=== PATIENT | female | born 1950 | race Caucasian/White ===

== ENCOUNTER 2016-06-28 07:42 | Emergency (ER) | payer OTHER, MEDICARE ==
--- NOTE | 2016-06-28 08:01 | UCPHY ---
H & P Time Seen by Provider: 06/28/16 07:58 Patient Type: New HPI/ROS: CHIEF COMPLAINT: Cough and congestion HISTORY OF PRESENT ILLNESS: Patient started having symptoms 9 days ago with sore throat and mild cough. She was prescribed azithromycin by a clinic at [facility] in [facility] last Tuesday. Over the weekend her cough became worse. Severe and keeping her awake. Yellow to green sputum production. No chest pain or leg swelling or hemoptysis. She had some sinus pressure last night. She has sore throat yesterday but today it is better. REVIEW OF SYSTEMS: Eye: no change in vision ENT: HPI Cardiac: no chest pain or syncope Pulmonary: HPI Abdomen: no vomiting, diarrhea, abdominal pain Musculoskeletal: no back pain or leg pain Skin: no rash Neuro: no headache Constitutional: no fever : no urinary symptoms A comprehensive 10 point review of systems is otherwise negative aside from elements mentioned in the history of present illness. PAST MEDICAL HISTORY: Family history negative DVT Social history: Nonsmoker General Appearance: Alert and conversant, cooperative. Eyes: No scleral icterus. ENT, Mouth: Normal mucous membranes. Normal pharynx without erythema or exudate , no trismus. Respiratory: Bilateral wheezing but no focal lung sounds or rales. Cardiovascular: Regular rate and rhythm. Gastrointestinal: Abdomen is soft and non tender. Neurological: Alert and oriented x3. Normally conversant. Face symmetric, normal movement and sensation in all extremities. Skin: Warm and dry, no rashes. Musculoskeletal: No peripheral edema and no joint swelling. No calf tenderness. Psychiatric: Not agitated. Emergency Department course/MDM: Plan for chest x-ray and DuoNeb. 850: Results discussed, less wheezy at this time on exam, albuterol neb and prednisone discussed and consented. Smoking Status: Never smoked Constitutional: Initial Vital Signs Temperature (C) 36.9 C 06/28/16 07:57 Heart Rate 75 06/28/16 07:57 Respiratory Rate 18 06/28/16 07:57 Blood Pressure 142/101 H 06/28/16 07:57 O2 Sat (%) 92 06/28/16 07:57 O2 Delivery Mode Room Air Allergies/Adverse Reactions: Sulfa (Sulfonamide Antibiotics) Allergy (Intermediate, Verified 06/28/16 07:57) Rash codeine Adverse Reaction (Severe, Verified 06/28/16 07:57) Vomiting PENICILLIN Allergy (Intermediate, Uncoded 06/28/16 07:57) Rash Home Medications: Medication Instructions Recorded VITAMIN 02/26/10 Albuterol Hfa Anes Only [Proair 2 puffs IH QID PRN #1 mdi 06/28/16 Hfa Icu (*)] predniSONE [prednisone 20mg (RX)] 40 mg PO DAILY 4 Days 06/28/16 Medical Decision Making - Diagnostics Imaging Results: Chest x-ray negative for pneumonia or other acute abnormality. Bronchitis pattern Imaging: I viewed and interpreted images myself Departure - Departure Disposition: Home, Routine, Self-Care Clinical Impression: Bronchitis Condition: Good Instructions: Acute Bronchitis (ED) Referrals: Emmanuel Doshi DO [Primary Care Provider] - As per Instructions Prescriptions: Albuterol Hfa Anes Only [Proair Hfa Icu (*)] 2 puffs IH QID PRN #1 mdi PRN Reason: cough predniSONE [prednisone 20mg (RX)] 40 mg PO DAILY 4 Days - PQRS PQRS Measurement: 134: Depression screening and followup, PRIME MD-PHQ2 (12 years and older) Over the last 2 weeks, how often have you been bothered by any of the following problems? 1. Feeling down, depressed, or hopeless? 2. Little interest or pleasure in doing things? Patient answered no to both 1 and 2 130: Documentation of medications. Reviewed all patient medications, doses, route and frequency. 226: Do you smoke? No. 47: 65 and older: Advanced care planning. Patient designates surrogate decision maker as spouse . 51: 18 years old and older with diagnosis of COPD, spirometry performance. Patient has no history of COPD 52: 18 years old and older with COPD and symptoms of COPD or FEV1<60% predicted prescribed a B Agonist. Spirometry not performed; equipment not available.
[2016-06-28] MEDS ORDERED: IPRATROPIUM/ALBUTEROL 3 ML DEYVIAL IH ONE (08:08)
[2016-06-28] MEDS ORDERED: IPRATROPIUM/ALBUTEROL 3 ML DEYVIAL ONE (08:10)
[2016-06-28 08:15] VITALS: RESP 18; TEMP 98.4
[2016-06-28] MEDS ORDERED: predniSONE 20 MG TAB PO ONE (08:52)
[2016-06-28] MEDS ORDERED: ALBUTEROL 3 ML DEYVIAL IH ONE (08:52)
[2016-06-28 12:44] VITALS: BP 117/73; PULSE 89; O2SAT 94
== END 2016-06-28 09:35 | disposition home or self-care (01) ==
LOC: CED 07:42
DX: J20.9 Acute bronchitis, unspecified (principal)
CPT/HCPCS: 71020; G0463; 99204-PO

== ENCOUNTER 2016-07-05 08:52 | Emergency (ER) | payer OTHER, MEDICARE ==
[2016-07-05 09:29] VITALS: RESP 16; TEMP 98.2
--- NOTE | 2016-07-05 09:58 | UCPHY ---
H & P Time Seen by Provider: 07/05/16 09:43 Patient Type: Established HPI/ROS: This patient complains of cough since June 19. She was treated with a Z-Miguel and ear Sadi[facility] early course of the illness without resolution and was seen here at [facility] on June 28 with a normal chest x-ray at that time, diagnosed with bronchitis and placed on albuterol inhaler with prednisone. She reports compliance with the treatment plan but has not had resolution of cough. In fact, she feels that she has more chest congestion now and reports that her feeling of dyspnea is present with some exertion if she lies flat is well. She also reports onset of bloody sputum over the past 3 days. She reports some chest pain with cough yesterday that sounded nonpleuritic more achy in nature is improved today. ROS: No high fevers or chills. No significant fatigue. HEENT: No nasal congestion. No sore throat. No dysphonia. Pulmonary: As per HPI cardiovascular: No heart palpitations or lightheadedness. No lower extremity swelling. No chest pain other than was mentioned in HPI. GI: No nausea vomiting diaphoresis. Integumentary: No skin rash. 10 point ROS is otherwise negative. Past Medical/Surgical History: Recent visit for bronchitis as noted in HPI. Otherwise healthy Family history is negative for premature coronary disease Smoking Status: Never smoked Physical Exam: General Appearance: Alert, no distress. Eyes: Pupils equal and round no pallor or injection. ENT, Mouth: Mucous membranes moist. Respiratory: Rhonchi-mild right base more than left. No rales. Minimal expiratory wheeze Cardiovascular: Regular rate and rhythm. No murmur gallop rub. No JVD. No peripheral edema. Gastrointestinal: Abdomen is soft and nontender, no masses, bowel sounds normal. Neurological: Alert with no focal deficits. Skin: Warm and dry, no rashes. Musculoskeletal: Neck is supple nontender. Extremities are symmetrical, full range of motion. Psychiatric: Mood and affect normal DIFFERENTIAL DIAGNOSIS: After history and physical exam differential diagnosis was considered for persistent bronchitis, pneumonia, doubt CHF, PE Constitutional: Initial Vital Signs Temperature (C) 36.8 C 07/05/16 09:12 Heart Rate 70 07/05/16 09:12 Respiratory Rate 16 07/05/16 09:12 Blood Pressure 130/86 H 07/05/16 09:12 O2 Sat (%) 95 07/05/16 09:12 O2 Delivery Mode Room Air Allergies/Adverse Reactions: Sulfa (Sulfonamide Antibiotics) Allergy (Intermediate, Verified 07/05/16 09:22) Rash codeine Adverse Reaction (Severe, Verified 07/05/16 09:22) Vomiting PENICILLIN Allergy (Intermediate, Uncoded 07/05/16 09:22) Rash Home Medications: Medication Instructions Recorded VITAMIN 02/26/10 Doxycycline Hyclate [Vibramycin 100 mg PO BID #14 cap 07/05/16 100 MG (*)] Fluticasone Hfa 220 Mcg [Flovent 2 puffs IH DAILY #1 mdi 07/05/16 220 MCG Hfa MDI (*)] MDM/Departure - MDM Diagnostics: CBC reveals mild leukocytosis with increased lymphocytes. She also has increased monocytes. D-dimer is negative Troponins normal Basic metabolic panel normal BNP is normal Peak flow is low at 250 the predicted of 400. Her peak flow did not change after a DuoNeb. Discussion: Patient here with ongoing bronchitis despite appropriate treatment. Given lack of fever lack of clinical evidence to suggest pneumonia- no rales, it recent normal chest x-ray, no fevers and ongoing symptoms proceed with further workup to rule out coronary syndrome, PE, CHF. Her EKG appears benign here with exception of very subtle EKG abnormality which may be her baseline inferior leads with borderline T-wave abnormalities. And not think she is having active coronary event. Counseled patient regarding findings. Given her hemoptysis will cover her with an antibiotic with plan to follow up with her primary care physician, shook splicer for any ongoing symptoms- protection officer. ED Course/Re-evaluation: DuoNeb without improvement peak flow. - Depart Disposition: Home, Routine, Self-Care Clinical Impression: Bronchitis, Hemoptysis Dyspnea Qualifiers: Dyspnea type: unspecified Qualified Code(s): R06.00 - Dyspnea, unspecified Condition: Good Instructions: Acute Bronchitis (ED) Additional Instructions: Diagnosis: 1. Bronchitis 2. Dyspnea 3. Hemoptysis Plan: Humidifier Continue albuterol inhaler for cough, wheeze or shortness of breath Add Flovent steroid inhaler for 10-14 days Start doxycycline antibiotic as described. Call the shook splicer - Dr. Mckeon listed below to arrange follow-up appointment for further evaluation given your subtle abnormality in her EKG If you're still not improving in terms of your peak flow despite this treatment plan, follow up with protection officer Go to the emergency department for any significant worsening despite treatment plan. Prescriptions: Doxycycline Hyclate [Vibramycin 100 MG (*)] 100 mg PO BID #14 cap Fluticasone Hfa 220 Mcg [Flovent 220 MCG Hfa MDI (*)] 2 puffs IH DAILY #1 mdi Referrals: Emmanuel Doshi, [Primary Care Provider] - As per Instructions Leslie Mckeon MD [Medical Doctor] - As per Instructions Wes Watson MD [Medical Doctor] - As per Instructions - PQRS PQRS Measurement: 134: Depression screening and followup, PRIME MD-PHQ2 (12 years and older) Over the last 2 weeks, how often have you been bothered by any of the following problems? 1. Feeling down, depressed, or hopeless? 2. Little interest or pleasure in doing things? Patient answered no to both 1 and 2 130: Documentation of medications. Reviewed all patient medications, doses, route and frequency. 226: Do you smoke? [No.] 47: 65 and older: Advanced care planning. Patient designates surrogate decision maker as spouse 51: 18 years old and older with diagnosis of COPD, spirometry performance. NA 52: 18 years old and older with COPD and symptoms of COPD or FEV1<60% predicted prescribed a B Agonist. NA
[2016-07-05] MEDS ORDERED: IPRATROPIUM/ALBUTEROL 3 ML DEYVIAL IH ONE (10:17)
--- NOTE | 2016-07-05 11:01 | CPEKG ---
Heart Rate: 64 RR Interval: 938 P-R Interval: 136 QRSD Interval: 68 QT Interval: 416 QTC Interval: 430 P Wray: 61 QRS Wray: 3 T Wave Wray: -4 EKG Severity - BORDERLINE ECG - EKG Impression: SINUS RHYTHM EKG Impression: BORDERLINE T ABNORMALITIES, INFERIOR LEADS Electronically Signed By: Chavez Arriola 05-Jul-2016 15:11:45
[2016-07-05] MEDS ORDERED: IPRATROPIUM/ALBUTEROL 3 ML DEYVIAL ONE (11:03)
[2016-07-05 11:17] LABS: % IMMATURE GRANULYOCYTES 1.1 % (0.0-1.1); ABSOLUTE IMMATURE GRANULOCYTES 0.12 10^3/uL (0.00-0.10); ADD DIFF? NO; ADD MORPH? NO; ADD SCAN? NO; ATYPICAL LYMPHOCYTE FLAG 20 (0-99); FRAGMENT RBC FLAG 0 (0-99); HEMATOCRIT 46.3 % (38.0-47.0); HEMOGLOBIN 15.8 g/dL (12.6-16.3); LEFT SHIFT FLG 10 (0-99); LIPEMIA HEMOLYSIS FLAG 90 (0-99); MEAN CELL HEMOGLOBIN 30.4 pg (27.9-34.1); MEAN CELL HEMOGLOBIN CONCENTR. 34.1 g/dL (32.4-36.7); PLATELET CLUMPS FLAG 0 (0-99); PLATELET COUNT 346 10^3/uL (150-400); RED CELL DISTRIBUTION WIDTH 12.3 % (11.5-15.2)
[2016-07-05 11:34] LABS: ANION GAP 12 mEq/L (8-16); CALCIUM 9.4 mg/dL (8.5-10.4); CARBON DIOXIDE 26 mEq/l (22-31); CHLORIDE 101 mEq/L (97-110); CREATININE 0.8 mg/dL (0.6-1.0); GLOMERULAR FILTRATION RATE > 60; GLUCOSE 95 mg/dL (70-100); POTASSIUM 4.2 mEq/L (3.5-5.2); SODIUM 139 mEq/L (134-144)
[2016-07-05 11:47] LABS: TROPONIN I < 0.012 ng/mL (0-0.034)
[2016-07-05 21:34] VITALS: BP 118/86; PULSE 71; O2SAT 94
== END 2016-07-05 12:25 | disposition home or self-care (01) ==
LOC: CED 08:52
DX: J40 Bronchitis, not specified as acute or chronic (principal); R06.00 Dyspnea, unspecified; R04.2 Hemoptysis
CPT/HCPCS: 93005; G0463; 80048-PO; 83880-PO; 84484-PO; 85025-PO; 85378-PO

== ENCOUNTER → 2016-09-08 | Outpatient (CLI) | payer OTHER, MEDICARE | LOC: CIMAGING 08:06 | PROVIDERS: ATTEND Family Medicine | DX: Z12.31 Encounter for screening mammogram for malignant neoplasm of breast (principal) | CPT/HCPCS: G0202 ==

== ENCOUNTER → 2017-06-13 | Outpatient (CLI) | payer OTHER, MEDICARE ==
[~2017-06-13] MED LIST: GADOBUTROL 10 ML VIAL IVP ONE
== END ==
LOC: FIMAGING 06:41
PROVIDERS: ATTEND Internal Medicine Gastroenterology
DX: R93.3 Abnormal findings on diagnostic imaging of other parts of digestive tract (principal)
CPT/HCPCS: 74183; A9585

== ENCOUNTER → 2017-11-03 | Outpatient (CLI) | payer OTHER, MEDICARE | LOC: CIMAGING 07:28 | PROVIDERS: ATTEND Family Medicine | DX: Z12.31 Encounter for screening mammogram for malignant neoplasm of breast (principal) ==